=== PATIENT | female | born 2000 | race Two or more races ===

== ENCOUNTER 2024-10-19 01:45 | Emergency (ER) | payer MEDICAID, SELFPAY ==
[2024-10-19 01:47] VITALS: BMI 25.6
[2024-10-19 02:20] VITALS: BP 109/60; PULSE 83; RESP 16; TEMP 36.7; O2SAT 97
[2024-10-19 02:31] LABS: Collection Type, Urine Clean Catch
--- NOTE | 2024-10-19 02:34 | PD.EDFMALE ---
ED Female Urogenital RME/HPI General Chief complaint: Abdominal Pain Stated complaint: painful urination Time Seen by Provider: 10/19/24 02:26 Arrival date/time: 10/19/24 01:45 23F with no significant PMH presents to ED with 2 days of dysuria. Separately, patient notes yesterday patient accidentally scratched her vaginal wall during sexual intercourse, but confirms dysuria started prior to this incident. Patient denies concern for STD. Limitations: no limitations Related Data Previous Rx's ?Medication ?Instructions ?Recorded ondansetron 4 mg disintegrating 4 mg PO Q8H #10 tabs 01/23/23 tablet ondansetron 4 mg disintegrating 4 mg PO Q6H PRN nausea and 12/31/23 tablet vomiting #14 tabs cefuroxime axetil 500 mg tablet 500 mg PO BID 7 days #14 tabs 10/19/24 Allergies Allergy/AdvReac Type Severity Reaction Status Date / Time No Known Allergies Allergy Verified 03/15/24 19:32 Review of Systems Review of Systems Systems Reviewed: All systems reviewed, normal except as documented Constitutional Constitutional: Reports system reviewed and no additional complaints, except as documented, Denies fever(s) and Denies headache(s) ENT Ears, Nose, Mouth, and Throat: Denies disequilibrium and Denies headache(s) Cardiovascular Cardiovascular: Reports system reviewed and no additional complaints, except as documented, Denies chest pain and Denies dyspnea Respiratory Respiratory: Reports system reviewed and no additional complaints, except as documented, Denies cough and Denies dyspnea Gastrointestinal Gastrointestinal: Reports system reviewed and no additional complaints, except as documented, Denies abdominal pain, Denies nausea and Denies vomiting Genitourinary Genitourinary: Reports as per HPI and Reports dysuria Neurologic Neurologic: Reports system reviewed and no additional complaints, except as documented, Denies confusion, Denies disequilibrium and Denies headache(s) Psychiatric Psychiatric: Denies confusion Past Medical History Past Medical History CARDIAC: Negative Congestive Heart Failure RESPIRATORY: Negative Chronic Obstructive Pulmonary Disease (COPD) GENITOURINARY: Negative Renal Disease ENDOCRINE: Negative Diabetes Mellitus Type 1 or Diabetes Mellitus Type 2 PSYCHO/SOCIAL: Positive Depression Social History SMOKING STATUS: Never smoker ED Exam General Limitations: Present no limitations General appearance: Present alert and in no apparent distress Head Head exam: Present atraumatic Eye Eye exam: Present normal appearance, PERRL and EOMI ENT ENT exam: Present normal exam, normal oropharynx and mucous membranes moist Neck Neck exam: Present normal inspection, full ROM and trachea midline Chest Chest inspection: Present normal inspection and symmetric chest wall rise Respiratory Respiratory exam: Present normal lung sounds bilaterally Cardiovascular Cardiovascular exam: Present regular rate, normal rhythm and normal heart sounds Abdominal Exam Abdominal exam: Present soft and normal bowel sounds Extremities Exam Extremities exam: Present normal inspection and full ROM Back Exam Back exam: Present normal inspection and full ROM Neurological Exam Neurological exam: Present alert, oriented X3 and CN II-XII intact Psychiatric Psychiatric exam: Present normal affect and normal mood Skin Skin exam: Present warm, dry, intact and normal color Course Quality Measures none Orders Category Date Time Status HCG Qualitative,Urine Stat Lab 10/19/24 02:25 Completed Urinalysis, C/S if Indicated Stat Lab 10/19/24 02:25 Completed Naproxen [Naprosyn] Med 10/19/24 02:42 Pending 500 mg PO X1 ONE cefuroxime axetiL [cefUROXime axetil] Med 10/19/24 02:42 Discontinued 500 mg PO X1 ONE Vital Signs Vital signs: Vital Signs Temperature 98.0 F 10/19/24 02:20 Pulse Rate 83 10/19/24 02:20 Respiratory Rate 16 10/19/24 02:20 Blood Pressure 109/60 10/19/24 02:20 Pulse Oximetry (%) 97 10/19/24 02:20 Oxygen Delivery Method Room Air 10/19/24 02:20 O2 at 97% on RA and WNLs Urogenital - Female MDM Narrative MDM Narrative:: 23F with no significant PMH presents to ED with 2 days of dysuria. Separately, patient notes yesterday patient accidentally scratched her vaginal wall during sexual intercourse, but confirms dysuria started prior to this incident. Patient denies concern for STD. Physical exam reveals no flank tenderness. Patient declines genital exam. Patient is afebrile, calm, and alert. UA contaminated, but will treat given many WBCs and symptoms. HCG neg. Patient data External records reviewed:: [facility] previous records Clinical information provided by:: patient Social determinants that could affect healthcare access:: none Patient has the following chronic illnesses:: none How is presenting disease/condition affected by chronic disease/condition?: no chronic disease Evaluation data The following diagnostics were reviewed and interpreted by me:: lab results Lab and/or radiology exams considered but not ordered:: ordered Interpretation Summary: above Medications / Prescriptions Medications or Prescriptions considered but not ordered:: ordered Medication administrations:: Medication Administration History Naproxen (Naproxen 250 Mg Tablet) 500 mg PO X1 ONE Stop: 10/19/24 02:43 Discontinued Medications Cefuroxime Axetil (Cefuroxime Axetil 250 Mg Tablet) 500 mg PO X1 ONE Stop: 10/19/24 02:43 above Consultations Consultation(s) initiated? (list below): No Diagnosis Urogenital Female Differential Diagnosis: urinary tract infection, bacterial vaginosis, trichomoniasis, cervicitis, ovarian cyst, vaginitis, ruptured ovarian cyst, cyst of Bartholin's gland, cystitis and dysmenorrhea Most likely diagnosis given after review of the tests above:: UTI Admission Indicated Admission indicated?: not indicated Admission Request Was there a request for admission?: No Disposition Plan Disposition Plan: Discharge Discharge Attestation Discharge Attestation: The patient and all family members were given an opportunity to ask questions and understood the discharge instructions. Discharge instructions specifically effects, indications for sooner follow up or return to the emergency department, and the expected course of current diagnosis. Patient condition: Stable Discharge Plan Plan Patient Disposition: HOME (Self Care) Disposition Comment: Stable Prescriptions/Referrals Prescriptions/Med Rec: New cefuroxime axetil 500 mg tablet 500 mg PO BID 7 Days Qty: 14 0RF No Action ondansetron 4 mg tablet,disintegrating 4 mg PO Q8H Qty: 10 0RF ondansetron 4 mg tablet,disintegrating 4 mg PO Q6H PRN (Reason: nausea and vomiting) Qty: 14 0RF Referrals: Oj Davis PA-C [Primary Care Provider] - In 1 week Problem List Clinical Impression: UTI (urinary tract infection) Patient/Caregiver Discharge Instructions Education Materials: ED CYSTITIS Female Adult Additional Instructions: Please follow-up with PCP within 24-48 hours and return immediately if symptoms worsen. Ibuprofen/Tylenol can be used simultaneously for greater fever/pain control. No sexual activity until the scratch heals. Print Language: Maldivian Stand Alone Forms: Patient Portal Info Letter JENNIFER/DERIK Supervising Physician GEOFFREY Supervising Physician: Dr. Beaulieu
[2024-10-19 02:39] LABS: Bilirubin,Urine Negative (Negative); Blood,Urine 3+ (Negative); Clarity,Urine Turbid (Clear/Hazy); Color,Urine Yellow (Lt Yel-Yel); Culture Indicated,Urine Contaminated; Glucose, Urine Negative (Negative); Ketones,Urine Negative (Negative); Leukocyte Esterase,Urine Positive (Negative); Nitrite,Urine Negative (Negative); PH,Urine 5.5 (5.0-7.0); Protein,Urine 1+ (Neg - Trace); RBC,Urine 205 /hpf (0-3); Specific Gravity,Urine 1.027 (1.001-1.035); Squamous Epithelial Cell,Urine 118 /hpf (0-5); Urobilinogen,Urine Negative mg/dL (0.0-1.0); WBC,Urine 155 /hpf (0-5)
[2024-10-19 02:55] LABS: HCG Qualitative,Urine Negative
[2024-10-19] MEDS: cefuroxime axetiL 250 MG TABLET 500 MG PO (03:07)
== END 2024-10-19 03:15 | disposition home or self-care (01) ==
PROVIDERS: Physician Assistant; Emergency Provider Emergency Medicine; PCP Physician Assistant Medical
DX: N39.0 Urinary tract infection, site not specified (principal)
CPT/HCPCS: 81001; 81025; 99283; A9270

== ENCOUNTER → 2025-05-04 | Outpatient (CLI) | payer OTHER, MEDICAID, SELFPAY ==
--- NOTE | 2025-05-04 11:08 | XR_ITS ---
Examination: Knee, left , 3 views Technique: Knee AP, lateral, oblique 3 views Date and time of exam: May 04, 2025 1126 hours INDICATIONS: Injury to the knee 3 weeks ago, knee pain. FINDINGS: No fracture or dislocation. No foreign body IMPRESSION: No fracture or dislocation
== END | disposition home or self-care (01) ==
PROVIDERS: PCP Family Medicine; Referring Provider Nurse Practitioner; Visit Provider Nurse Practitioner
DX: S83.92XA Sprain of unspecified site of left knee, initial encounter (principal); X58.XXXA Exposure to other specified factors, initial encounter
CPT/HCPCS: 73562